=== PATIENT | male | born 1980 | race Caucasian/White ===

== ENCOUNTER → 2016-11-09 | Outpatient (CLI) | payer OTHER ==
[~2016-11-09] VITALS: Ht 182.9 cm; Wt 102.1 kg
[~2016-11-09] MED LIST: LIDOCAINE 2% INJ 100 MG/5 ML SDV (FOR ANES.) As Ordered ONE; NS 1,000 ML IV SCH; OMEP20CA3 PO; PROPOFOL 200 MG/20 ML VIAL As Ordered ONE
--- NOTE | 2016-11-09 11:28 | ROOR ---
Patient Name: Rivas Chavez Procedure Date: 11/09/2016 11:09 AM Date of : 1980 Age: 35 Room: [facility] Gender: Male Note Status: Finalized Procedure: Upper GI endoscopy Indications: Heartburn Providers: Malcolm DAVIS MD Referring MD: RADHA HUANG MD Requesting Provider: Medicines: Monitored Anesthesia Care Complications: No immediate complications. Procedure: Pre-Anesthesia Assessment: - The heart rate, respiratory rate, oxygen saturations, blood pressure, adequacy of pulmonary ventilation, and response to care were monitored throughout the procedure. The Endoscope was introduced through the mouth, and advanced to the second part of duodenum. The upper GI endoscopy was accomplished without difficulty. The patient tolerated the procedure well. Findings: Mucosal changes including longitudinal furrows and congestion (edema) were found in the entire esophagus. Biopsies were taken with a cold forceps for histology. The exam of the esophagus was otherwise normal. The Z-line was regular and was found 39 cm from the incisors. The entire examined stomach was normal. The cardia and gastric fundus were normal on retroflexion. The examined duodenum was normal. Impression: - Esophageal mucosal changes suspicious for eosinophilic esophagitis vs reflux esophagitis. Biopsied. - Z-line regular, 39 cm from the incisors. - Normal stomach. - Normal examined duodenum. Recommendation: - Use Prilosec (omeprazole) 40 mg PO daily. - Telephone endoscopist for pathology results in 2 weeks. Malcolm Davis MD Malcolm DAVIS MD 11/09/2016 11:28:36 AM This report has been signed electronically. Number of Addenda: 0 Note Initiated On: 11/09/2016 11:09 AM Estimated Blood Loss: Estimated blood loss: none.
--- NOTE | 2016-11-09 11:46 | ROOR ---
Patient Name: Rivas Chavez Procedure Date: 11/09/2016 11:10 AM Date of : 1980 Age: 35 Room: [facility] Gender: Male Note Status: Finalized Procedure: Colonoscopy Indications: Hematochezia Providers: Malcolm DAVIS MD Referring MD: RADHA HUANG MD Requesting Provider: Medicines: Monitored Anesthesia Care Complications: No immediate complications. Procedure: Pre-Anesthesia Assessment: - The heart rate, respiratory rate, oxygen saturations, blood pressure, adequacy of pulmonary ventilation, and response to care were monitored throughout the procedure. The Colonoscope was introduced through the anus and advanced to 5 cm into the ileum. The colonoscopy was performed without difficulty. The patient tolerated the procedure well. The quality of the bowel preparation was good. Findings: The perianal exam findings include skin tags. (Exam: Complete, Prep: Good or Excellent.) A 4 mm polyp was found in the hepatic flexure. The polyp was sessile. The polyp was removed with a cold snare. Resection and retrieval were complete. The colon was redundant. Small Internal Hemorrhoids. The exam was otherwise without abnormality on direct and retroflexion views. Impression: - Perianal skin tags found on perianal exam. - Small Internal Hemorrhoids. - One 4 mm polyp at the hepatic flexure, removed with a cold snare. Resected and retrieved. - The colon is otherwise normal on direct and retroflexion views. - The terminal ileum is normal. Recommendation: - Use fiber, for example Citrucel, Fibercon, Konsyl or Metamucil. - Repeat colonoscopy in 5 years for surveillance. Malcolm Davis MD Malcolm DAVIS MD 11/09/2016 11:46:11 AM This report has been signed electronically. Number of Addenda: 0 Note Initiated On: 11/09/2016 11:10 AM Estimated Blood Loss: Estimated blood loss: none.
[2016-11-09 12:08] VITALS: BP 117/72
== END | disposition home or self-care (01) ==
LOC: M OPP 10:39
PROVIDERS: ATTEND Internal Medicine Gastroenterology
DX: D12.3 Benign neoplasm of transverse colon (principal); Q43.8 Other specified congenital malformations of intestine; K64.4 Residual hemorrhoidal skin tags; R12 Heartburn; K20.9 Esophagitis, unspecified; M54.9 Dorsalgia, unspecified; Z79.899 Other long term (current) drug therapy; Z91.011 Allergy to milk products